=== PATIENT | male | born 1950 | race Caucasian/White ===

== ENCOUNTER → 2017-06-24 | Outpatient (CLI) | payer OTHER | LOC: BMCIMAGING 09:59 | PROVIDERS: ATTEND Podiatrist Foot & Ankle Surgery | DX: M19.071 Primary osteoarthritis, right ankle and foot (principal) ==

== ENCOUNTER 2018-03-10 16:46 | Emergency (ER) | payer OTHER ==
--- NOTE | 2018-03-10 17:41 | EDPHY ---
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 Patient was on anticoagulation until 1 week ago and he was taken off this. He has been walking in a boot. Yesterday he noticed this area of pain and swelling. He denies any fever chills. He is otherwise feeling well. His ankle is doing well. He has not noticed any diffuse leg swelling. He denies any proximal pain, redness or swelling. REVIEW OF SYSTEMS: As in HPI, and all other systems reviewed and are negative Smoking Status: Never smoked Physical Exam: General Appearance: Alert and no distress. Head: Normocephalic, atraumatic Eyes: Pupils equal and round no injection. Extraocular movements are intact. Lungs: Bilateral clear to auscultation with no wheezes rales or rhonchi. Heart: Regular rate and rhythm, S1-S2 with no murmurs, gallops, rubs appreciated Musculoskeletal: Neck is supple and nontender. Extremities: Right leg positive 5 x 4 cm area of redness in mid medial calf which is tender and firm, no obvious leg asymmetry, DP pulses 2+ and equal bilaterally, PT pulses 2+ and equal bilaterally, patient has full range of motion of his knee and ankle. Skin: No rashes or lesions except as described above. Constitutional: Initial Vital Signs Temperature (C) 36.5 C 03/10/18 16:55 Heart Rate 77 03/10/18 16:55 Respiratory Rate 18 03/10/18 16:55 Blood Pressure 135/86 H 03/10/18 16:55 O2 Sat (%) 99 03/10/18 16:55 O2 Delivery Mode Room Air Allergies/Adverse Reactions: ibuprofen Allergy (Verified 03/10/18 16:54) Penicillins Allergy (Verified 03/10/18 16:54) Sulfa (Sulfonamide Antibiotics) Allergy (Verified 03/10/18 16:54) Home Medications: Medication Instructions Recorded Bupropion HBr 03/10/18 MDM/Departure - MDM Imaging Results: Imaging Impressions Extremity Venous Study 03/10/18 17:02 Impression: No deep venous thrombosis right leg. Findings and recommendations discussed with Emergency Department physician, Candie Werner MD at 18:14 hour, 03/10/2018. Final report concurs with initial preliminary interpretation. 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 Ultrasound was obtained which showed no evidence of DVT or SVT per the radiologist. The redness is minimal and there is no calor the patient is afebrile and otherwise well and I doubt infection. I wonder if this is due to mechanical compression from the boot he is wearing. We discussed this and I am recommending that he try padding the boot or wearing it more loose over that area. A muscle recommend he continue with warm compresses over the area several times a day. Also given his high risk status for venous thromboembolism I am recommending he have lesion recheck tomorrow by his orthopedist or PCP. The area was outlined with a skin pen. We discussed return precautions including but not limited to leg swelling, spreading redness , fever, increased pain. Patient understands and is agreeable to this plan. - Depart Disposition: Home, Routine, Self-Care Clinical Impression: Contusion of leg, right Qualifiers: Encounter type: initial encounter Qualified Code(s): S80.11XA - Contusion of right lower leg, initial encounter Condition: Good Additional Instructions: You were seen by Dr. Candie Werner today. Your ultrasound showed no evidence of deep vein thrombosis or superficial vein thrombosis. It is possible this area of pain and redness is due to compression from your boot. I recommend wearing the boot more loosely. I would also like to have the area rechecked by her orthopedist or your primary care physician in 24 hr. Watch for increasing redness, increasing pain, fever or leg swelling and if he develops any of these please return immediately for re-evaluation. If symptoms persist or get worse I would consider repeating the ultrasound. Return for any worsening or new concerns. Referrals: Brittany Bland MD [Primary Care Provider] - As per Instructions
[2018-03-10 18:42] VITALS: BP 130/80
== END 2018-03-10 18:40 | disposition home or self-care (01) ==
LOC: CED 16:46
DX: S80.11XA Contusion of right lower leg, initial encounter (principal); Z96.661 Presence of right artificial ankle joint
CPT/HCPCS: 93971-PO

== ENCOUNTER → 2018-08-03 | Outpatient (CLI) | payer OTHER | LOC: BHFA 11:00 | PROVIDERS: ATTEND Internal Medicine Interventional Cardiology | DX: R06.09 Other forms of dyspnea (principal) ==